=== PATIENT | male | born 1965 | race Caucasian/White ===

== ENCOUNTER 2019-05-29 12:01 | Inpatient (IN) | payer OTHER, SELFPAY ==
[2019-05-25 10:57] VITALS: BMI 29.9
[2019-05-29] VITALS (16 sets, daily range): BP systolic 106–137; BP diastolic 55–84; PULSE 77–97; RESP 10–20; TEMP 36.3–37.1; O2SAT 92–98; BMI 29.9
--- NOTE | 2019-05-29 | DI.RAD.S_ITS ---
PROCEDURE: XR CERVICAL SPINE 2V OR 3V INDICATIONS: C5-6 C6-7 ACDF TECHNIQUE: 3 intraoperative fluoroscopic view(s) of the cervical spine were acquired. COMPARISON: None. FINDINGS: Intraoperative fluoroscopic images of cervical spine shows anterior fusion hardware is seen at C5-C7 levels. IMPRESSION: Fluoroscopy guidance was provided intraoperatively for anterior fusion at C5-6 and C6-7 levels. Dictated by: Destin Nieto M.D. on 05/29/2019 at 18:00 Approved by: Destin Nieto M.D. on 05/29/2019 at 18:00
[2019-05-29] MEDS: LACTATED RINGERS 1,000 ML 42 ML IV ×2 (12:45→17:34)
[2019-05-29] MEDS: ACETAMINOPHEN 325 MG TABLET 975 MG PO (12:55)
[2019-05-29] MEDS: GABAPENTIN 300 MG CAPSULE PO (12:56)
[2019-05-29] MEDS: CELECOXIB 200 MG CAPSULE 400 MG PO (13:01)
--- NOTE | 2019-05-29 15:04 | PM.PREOP ---
Pre-operative Note Interval Note History & Physical reviewed/Exam performed by Physician: Yes Changes to H&P: No
[2019-05-29] MEDS: CEFAZOLIN 2 GM/100 ML FROZ.PIGGY IV ×2 (15:32→23:29)
--- NOTE | 2019-05-29 16:08 | SUR.OPER ---
Supine, head on gel donut. Arms padded with gel pads, tucked at sides, towel roll under shoulders. Safety belt at thigh. Legs uncrossed.
[2019-05-29] MEDS: BUPIVACAINE 0.25% W/ EPI 30 ML VIAL INJ (16:27)
--- NOTE | 2019-05-29 17:49 | P.OP_ITS ---
Operative Date/Time/Diagnoses Date of procedure: 05/29/19 Time of procedure: 15:12 Pre-op diagnosis: 1. C5-6, c6-7 spinal stenosis 2. C5-6, C6-7 spondylosis with radiculopathy Post-op diagnosis: same Procedure & Clinicians Procedure: 1. C5-6 C6-7 anterior cervical diskectomy and fusion 2. C5-6 C6-7 anterior interbody cage placement 3. C5-6 C6-7 anterior instrumentation with plate and screw placement in C5-C6 and C7 vertebrae 4. Utilization of microsurgical technique and operating microscope Same procedure as scheduled: Yes Indications: Patient has been having chronic neck pain and worsening cervical radiculopathy due to a injury while working. Patient failed multiple conservative management with worsening pain weakness and numbness in her upper extremity. Patient has been having difficulty performing activity of daily living. After discussing risks benefits of treatment options, patient elected proceed with surgery. Surgeon: Nathan Diez Synthetic Filament Extruder: Anu Andrews Click Yes if Unassisted: No Anesthesia Type: General Operative Notes Closure Type: primary Specimen(s): none sent Prosthetic devices, grafts, tissues, transplants, or devices: Globus extend plate, PEEK cages Estimated Blood Loss (mL): 20 Blood products transfused: none Procedure in detail: Patient was seen in the preoperative area. Risks and benefits of the surgery was discussed with the patient. Operative consent was obtained and placed in the chart. Patient was then taken to the operative room. Prophylactic antibiotic was given less than 0.5 hr prior to skin incision. General anesthesia was administered. Patient was placed into a supine position on her radiolucent table. Bilateral shoulders were taped down to allow proper C- arm imaging. Anterior cervical area was prepped and draped in a sterile fashion. Time-out was performed at this time. Using lateral C-arm imaging, the level between C5 and C7 was identified and marked on patient's neck. A oblique incision from midline towards medial border of sternocleidomastoid muscle was made. The platysma muscle was incised in line with skin incision. Metzenbaum scissor was used to develop the plane between the medial border of sternocleidomastoid d and the strap muscles medially. The carotid sheath and its contents were identified and protected behind the hand- held retractor during the entire case. The plane between the carotid sheath and strap muscles was developed with Metzenbaum scissors. Dissection was made down to the level of the anterior cervical fascia. Longus colli muscle was incised on the anterior aspect of vertebral bodies bilaterally from C5-C7. Spinal needle was placed into the C5-6 disc space and confirmed with lateral C-arm imaging. Using microsurgical technique and operative microscope, anterior cervical diskectomy was performed at C5-6 and C6-7 level. This was done by removing the disc material, removing the anterior and posterior osteophytes posterior longitudinal ligaments along with performing bilateral foraminotomies at both levels. Patient was found to have severe central and foraminal stenosis at both levels. Patient's stenosis was fully decompressed after decompression was completed. After the diskectomy was completed, 2 anterior interbody cages were obtained. The cages were packed with Bio4 bone grafting material. One cage each along with the bone grafting material was then packed into the interbody spaces from C5-C7 with one cage into each interbody level. After the cages were placed, the anterior cervical plate was stabilized to the C5-C7 vertebrae using 2 screws at each each level. Total 6 screws were placed. After confirming placement of the hardware with AP and lateral C-arm imaging, the screws were locked into the plate using the locking mechanism and torque limiting screwdriver. After the hardware was placed and confirmed with AP and lateral C-arm imaging, the wound was irrigated with sterile normal saline. The platysma muscle and the subcutaneous tissue was closed with 2-0 Vicryl. The skin was closed with 4-0 Monocryl and Steri-Strips. Patient tolerated the procedure well. Patient was transferred recovery room in stable condition. There were no complications. Complications: none Post-operative Condition: stable Disposition: PACU Plan for aftercare: Admit to inpatient hospital
[2019-05-29] MEDS: HYDROMORPHONE 2 MG INJ IV ×8 (17:55→18:50)
[2019-05-29] MEDS: fentaNYL 100 MCG/2 ML INJ IV ×4 (18:00→18:45)
[2019-05-29] MEDS: LACTATED RINGERS 1,000 ML 120 ML IV (18:06)
[2019-05-29] MEDS: OXYCODONE IR 5 MG TABLET PO (18:49)
--- NOTE | 2019-05-29 19:03 | SUR.PHASEI ---
pt last medicated at 1850 with oral and iv meds- see MAY. gave verbal report to MANAGER BUDGETMAVERICK Kim and acute care Sherrie Le. pt will require another 20 minutes of monitoring after IV meds. pt had 10/10 pain on arrival to PACU and is now a 5/10
[2019-05-29] MEDS: HYDROMORPHONE 0.5 MG INJ IV (20:10)
[2019-05-29] MEDS: SODIUM CHLORIDE 0.9% 1,000 ML 100 ML IV (20:11)
[2019-05-29] MEDS: OXYCODONE IR 5 MG TABLET 10 MG PO ×2 (20:19→23:28)
[2019-05-29] MEDS: hydrOXYzine pamoate 25 MG CAPSULE PO (20:19)
[2019-05-29] MEDS: ACETAMINOPHEN 325 MG TABLET 650 MG PO (20:19)
[2019-05-29] MEDS: MAG HYDROX/ALUM/SIMETH 30 ML UDC PO (21:15)
[2019-05-29] MEDS: DOCUSATE 100 MG CAPSULE PO (22:34)
[2019-05-29] MEDS: SENNOSIDES 8.6 MG TABLET 17.2 MG PO (22:34)
[2019-05-29] MEDS: PANTOPRAZOLE 20 MG TABLET PO (22:34)
--- NOTE | 2019-05-29 23:38 | PC.NURSE ---
Post-op note: Nick brought from PACU, reporting pain to neck and upper spine 10/05, medicated with Dilaudid, oxycodone & vistaril. Since then rates pain at a 4/10, appears relaxed. Ox3. VS stable. Ant neck drsg is CDI. Denies numbness to extremities. Wearing foot SCD's. Ambulated to BR to void, needing only SBA. Tolerated pudding & mac N cheese tonight, denies need for additional PO intake. Encouraged him to call in breakfast order & stick with soft foods. Reports sore throat but denies difficulty swallowing. Fall precautions in place, instructed to call staff if needs OOB or for any other needs/concerns.
--- NOTE | 2019-05-30 00:41 | PC.NURSE ---
Addendum entered by Melia Uriostegui R.N. 05/30/19 06:39: Pt reports pain upto a 7 with movement and while ambulating and requests IV dilaudid for breakthrough pain. Original Note: Pt alert and oriented x4. SBA to restroom. VSS. Pt reports tolerating pain at this time. Ice applied to help pain. Pt reports no numbness at this time. Cervical gauze dressing over incision clean dry and intact. C-collar intact. Pt has no complaints
[2019-05-30] MEDS: OXYCODONE IR 5 MG TABLET 10 MG PO ×5 (02:34→16:01)
[2019-05-30] MEDS: HYDROMORPHONE 0.5 MG INJ IV ×2 (02:58→06:43)
[2019-05-30 03:53] VITALS: BP 113/68; PULSE 64; RESP 16; TEMP 36.7; O2SAT 95
--- NOTE | 2019-05-30 07:36 | PM.PNPO.1 ---
Subjective Subjective Date Patient Seen: 05/30/19 Time Patient Seen: 07:36 Interval history: POD #1 s/p ACDF with Dr. Diez. Patient was early this morning getting dressed and moving about his room. He experienced an increase in pain but this has resolved since then. He is taking Vistaril and oxycodone with good pain management. He has some hoarseness. No difficulty swallowing. He does complain of posterior and anterior neck pain. Exam Vital Signs (past 8 hours): - 05/30/19 03:53 Temperature 98.0 F Pulse Rate 64 Respiratory Rate 16 Blood Pressure 113/68 Pulse Oximetry 95 Oxygen Delivery Method Room Air Oxygen Flow Rate 0 Narrative Exam Narrative: Patient is sitting up in bed no acute distress. He is alert and oriented x3. Calves are soft, compressible, nontender bilaterally. Radial pulses are symmetrical. No numbness going down the arms. Sensation intact to light touch throughout bilateral upper extremities. [employer] strength strong and equal. Dressing on anterior neck is CDI. Wearing soft collar. Objective Labs Result Diagrams: 05/30/19 08:00 Assessment & Plan Post-op Postoperative Procedures: Procedures Operation Date: 05/29/19 13:45 Actual Procedures Side Surgeon p C5-6,C6-7 ACDF w/Anterior instrumentation Nathan Diez MD Patient will mobilize with physical therapy today. He has been moving about his room. No excessive bending, lifting, or twisting. Soft collar for comfort. Advised patient to take Vistaril, and oxycodone for pain control. He is voiding without difficulty. The patient is mobilizing safely with adequate pain control he can go home today. Quality VTE Deep Vein Thrombosis/Pulmonary Embolism Present on Admission: No
[2019-05-30 08:00] VITALS: BP 119/81; PULSE 80; RESP 16; TEMP 36.6; O2SAT 92
[2019-05-30] MEDS: CEFAZOLIN 2 GM/100 ML FROZ.PIGGY IV (08:15)
[2019-05-30] MEDS: DOCUSATE 100 MG CAPSULE PO (08:15)
[2019-05-30 08:30] LABS: Hematocrit 43.3 % (41-53); Hemoglobin 14.8 g/dL (13.5-17.5); Mean Corpuscular HGB Conc 34.1 % (30-36); Mean Corpuscular Hemoglobin 30.2 PG (26-34); Mean Corpuscular Volume 88.6 fL (80-100); Platelet Count 227 X10^3/uL (150-400); Red Blood Cell Count 4.89 X10^6/uL (4.5-5.9); Red Cell Distribution Width 14.3 % (11.6-14.8); White Blood Cell Count 12.6 X10^3/uL (4.5-11.0)
[2019-05-30] MEDS: MAG HYDROX/ALUM/SIMETH 30 ML UDC PO (09:08)
--- NOTE | 2019-05-30 09:25 | PT.IIE ---
Current Diagnoses Other spondylosis with radiculopathy, cervical region (05/29/19) Spinal stenosis, cervical region (05/29/19) Surgery Performed Operation Date: 05/29/19 13:45 Actual Procedures p C5-6,C6-7 ACDF w/Anterior instrumentation - Nathan Diez MD Surgical History (Last Updated 05/25/19 @ 11:17 by Roxana Toth RN) Hx of eye surgery (Acute) Hx of neck surgery (Acute) Hx of right knee surgery (Acute) Medical History (Last Updated 05/25/19 @ 11:34 by Roxana Toth RN) Alcoholism (Acute) Gout (Acute) Heart burn (Acute) Osteoarthritis (Acute) Pneumonia (Acute) Situational hypertension (Acute) Physical Therapy Inpatient Evaluation/Re-Eval M1 PT/OT-IP Prior Functional Status Start: 05/30/19 09:47 Freq: NEEDED Status: Active Protocol: Document 05/30/19 09:48 [facility] (Rec: 05/30/19 10:13 [facility] [id number]) Medical Review Prior Functional Status Medical History Reviewed Yes Communication Independent. Mobility and Gait Independent with no device. Activities of Daily Living and IADL's Completely independent with all Adl and IADl needs. 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 Social History Household Members none Living Arrangements Apartment/Condo Number of Floors (Floors) One Floor Number of Stairs To Enter/Railing? 2 steps. Home Environment Standard Height Toilet,Tub/ Shower Home Equipment Hand Held Shower,Grab Bars In Shower Additional Social History Comment Pt's cousin to be home to assist, however his cousin has lost a leg due to diabetes. In addition pt has a dog. M1 PT/OT-IP Prior Functional Status Start: 05/30/19 12:14 Freq: NEEDED Status: Active Protocol: Document 05/30/19 09:25 AB (Rec: 05/30/19 12:26 AB [id number]) Medical Review Prior Functional Status Medical History Reviewed Yes Communication able to make needs known Mobility and Gait stated that he is indpeendent with all mobilities and ambulation without AD Social History Household Members none Living Arrangements Apartment/Condo Number of Floors (Floors) One Floor Number of Stairs To Enter/Railing? has 2 steps to enter without rails from the front has only 1 step to enter from the garage Home Environment Standard Height Toilet,Tub/ Shower Home Equipment Shower Seat with Backrest,Hand Held Shower,Grab Bars In Shower Additional Social History Comment pt stated that his cousin may assist but limited M2 PT-IP Current Condition Start: 05/30/19 12:14 Freq: NEEDED Status: Active Protocol: Document 05/30/19 09:25 AB (Rec: 05/30/19 12:26 AB [id number]) Physical Therapy Current Condition Current Condition Evaluation Date 05/30/19 Treatment Diagnosis s/p C5-7 ACDF; difficulty in walking Onset Date 05/29/2019 Precautions Cervical Spine Precautions Soft Collar for Comfort,No Heavy Lifting,Log Roll M3 PT-IP Subjective Start: 05/30/19 12:14 Freq: NEEDED Status: Active Protocol: Document 05/30/19 09:25 AB (Rec: 05/30/19 12:26 AB [id number]) Subjective Physical Therapy Visit Type Type Initial Evaluation Visit Start Time 09:25 Visit Stop Time 09:35 Total Visit Minutes 10 Number of ERECTING ENGINEER Visits 0 Physical Therapy Visit Comments Patient Comments pt agreeable to do PT Therapy Pain Assessment Pain When Pain Assessed At Rest Pain Present Pain Present Pain Reported Location back of neck Intensity 4 Scale Used Numeric (1 - 10) Pain Management Techniques Re-positioning,Timing of Activity with Medications M4 PT-IP Mobility and Gait Start: 05/30/19 12:14 Freq: NEEDED Status: Active Protocol: Document 05/30/19 09:25 AB (Rec: 05/30/19 12:26 AB [id number]) PT-Bed Mobility Assessment Rolling Type of Rolling Log Rolling Level of Assist Standby Assistance Supine to Sit Supine to Sit Standby Assistance Sit to Supine Sit to Supine Standby Assistance Scooting Scooting to Edge of Bed Standby Assistance PT-Transfer Assessment Sit to and From Stand Sit to and from Stand Standby Assistance Equipment Transfer Assistive Device None Orthotic/Prosthetic Devices or Brace: Yes Comments Mobility Comments pt completed log roll bed mobility SBA with initial cues for techniques but without cues on succeeding repetitions . ambulated in the hallway without AD SBA ~ 300ft. completed up/down steps without rails SBA. ambulated back to the room. informed nurse regarding pt's mobility. Gait Assessment Gait Gait Assistance Required: Standby Assistance Distance (Feet) 300 Able to Maintain Weight Bearing Status Yes During Gait Assistive Devices Assistive Device None Orthotic/Prosthetic Devices or Brace: Yes Gait Deviations General Gait Pattern Within Normal Limits Factors Limiting Gait Function Factors Limiting Gait Function Limited Range of Motion,Pain Stair Climbing Assessment Evaluation Level of Assist On Stairs Standby Assistance Devices Stair Climbing Assistive Devices None Technique/Endurance Stair Climbing Direction Ascend and Descend Stair Climbing Technique Step Over Step Number of Steps Climbed 3 Query Text: Stair Climbing Set # Repetitions (reps) 1 PT-Balance Assessment Sitting Balance and Reactions Static Sitting Balance Ability Normal Dynamic Sitting Balance Ability Normal Standing Balance and Reactions Static Standing Balance Ability Good Dynamic Standing Balance Ability Good Device Used without AD M5 PT-IP Objective Assessments Start: 05/30/19 12:14 Freq: NEEDED Status: Active Protocol: Document 05/30/19 09:25 AB (Rec: 05/30/19 12:26 AB [id number]) Orientation Orientation/Cognition Level of Alertness Alert Orientation Name,Age,Birthday,Month,Date, Year,Day of Week,Place, Situation Safety Awareness Understands Safety Issues Memory Description No Deficits Noted Gross Range of Motion Lower Extremity ROM Assessment Within Functional Limits Strength Lower Extremity Strength Assessment Within Functional Limits Coordination Assessment Gross Coordination Gross Coordination WNL Muscle Tone Muscle Tone WNL Yes M6 PT-IP Treatment Start: 05/30/19 12:14 Freq: NEEDED Status: Active Protocol: Document 05/30/19 09:25 AB (Rec: 05/30/19 12:26 AB [id number]) Physical Therapy Treatment Education Education Provided Precautions,Safety M7 PT-IP Assessment and Plan Start: 05/30/19 12:14 Freq: NEEDED Status: Active Protocol: Document 05/30/19 09:25 AB (Rec: 05/30/19 12:26 AB [id number]) PT Summary Assessment and Plan Potential Rehabilitation Potential Good Status of Condition at Evaluation Stable Summary Impairments Pain,ROM,Strength,Balance,Bed Mobility,Transfers,Gait, Activity Tolerance Assessment Summary pt requiring SBA with mobility and plans to go home later today. pt may go home when medically stable. Goals Bed Mobility Goal Independent Transfer Goal Independent Gait Goal Independent Gait Distance 350 Days to Meet Goals 3 Frequency of Treatment Frequency Of Treatment Once a Day Treatment Plan Physical Therapy Treatment Plan Bed Mobility Training,Transfer Training,Gait Training, Therapeutic Exercise,Balance Retraining,Post Op Education, Discharge Planning,Hot or Cold Pack,Neuromuscular Re-ed Recommendations To Nursing Amount of Assist Needed Standby Assistance Discharge Recommendations PT Discharge Recommendations Home with Assistance Transportation Needs at Discharge Private Vehicle
--- NOTE | 2019-05-30 10:13 | OT.IP.EVAL ---
Current Diagnoses Other spondylosis with radiculopathy, cervical region (05/29/19) Spinal stenosis, cervical region (05/29/19) Surgery Performed Operation Date: 05/29/19 13:45 Actual Procedures p C5-6,C6-7 ACDF w/Anterior instrumentation - Nathan Diez MD Past Medical History (Last Updated 05/25/19 @ 11:34 by Roxana Toth, RN) Alcoholism (Acute) Gout (Acute) Heart burn (Acute) Osteoarthritis (Acute) Pneumonia (Acute) Situational hypertension (Acute) Surgical History (Last Updated 05/25/19 @ 11:17 by Roxana Toth RN) Hx of eye surgery (Acute) Hx of neck surgery (Acute) Hx of right knee surgery (Acute) Occupational Therapy Inpatient Evaluation/Re-Eval M1 PT/OT-IP Prior Functional Status Start: 05/30/19 09:47 Freq: NEEDED Status: Active Protocol: Document 05/30/19 09:48 [facility] (Rec: 05/30/19 10:13 [facility] [id number]) Medical Review Prior Functional Status Medical History Reviewed Yes Communication Independent. Mobility and Gait Independent with no device. Activities of Daily Living and IADL's Completely independent with all Adl and IADl needs. 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 Social History Household Members none Living Arrangements Apartment/Condo Number of Floors (Floors) One Floor Number of Stairs To Enter/Railing? 2 steps. Home Environment Standard Height Toilet,Tub/ Shower Home Equipment Hand Held Shower,Grab Bars In Shower Additional Social History Comment Pt's cousin to be home to assist, however his cousin has lost a leg due to diabetes. In addition pt has a dog. M2 OT-IP Current Condition Start: 05/30/19 09:47 Freq: Status: Active Protocol: Document 05/30/19 09:48 [facility] (Rec: 05/30/19 10:13 [facility] [id number]) Occupational Therapy Current Condition Current Condition Evaluation Date 05/30/19 Treatment Diagnosis s/p C5-6, C6-7 ACDF Diagnosis Onset Date 05/29/19 Post Operative Precautions Cervical Spine Precautions Soft Collar for Comfort,Soft Collar at all Times,No Heavy Lifting,Log Roll Weight Bearing Status Weight Bearing Status Weight Bear as Tolerated M3 OT- IP Subjective and Pain Start: 05/30/19 09:47 Freq: Status: Active Protocol: Document 05/30/19 09:48 [facility] (Rec: 05/30/19 10:13 [facility] [id number]) OT- Subjective Occupational Therapy Visit Type Type Initial Evaluation Visit Start Time 08:18 Visit Stop Time 08:38 Total Visit Minutes 20 Occupational Therapy Visit Comments Patient Comments Pt agreeable to get up for OT eval. Patient/Caregiver Goals To go home. OT Pain Assessment Pain When Pain Assessed During Mobility Pain Present Pain Present Pain Reported Location back of neck Intensity 4 Scale Used Numeric (1 - 10) M4 OT- IP ADL's Start: 05/30/19 09:47 Freq: Status: Active Protocol: Document 05/30/19 09:48 [facility] (Rec: 05/30/19 10:13 [facility] [id number]) OT [id number] Comments OT Self-Feeding Comments Educated pt to eat softer food , upright at 90 degrees, beneficial to eat cold foods, and to chew thoroughly, and informational sheet given to pt. OT ADL-Grooming Comments OT Grooming Comments Educated to lean at his hips to the sink versus bend at his neck. OT ADL-Dressing General Eval Lower Body Dressing Ability Independent Comments OT Dressing Comments Pt able to comfortably cross his legs over in order to do all his LB dressing needs. OT ADL-Toileting Comments OT Toileting Comments Pt not having to use the toilet for a bowel movement, simulate to wipe and pt able to do so following cervical precautions appropriately. Educated if needing to able to push up on his knees to help to stand. Pt able to stand without any assist. OT ADL-Bathing Comments OT Bathing Comments Pt to shower at home and has a shower chair that he can use if needed. M5 OT- IP IADL's Start: 05/30/19 09:47 Freq: Status: Active Protocol: Document 05/30/19 09:48 [facility] (Rec: 05/30/19 10:13 [facility] [id number]) OT-Instrumental Activities of Daily Living Home Safety Awareness Awareness of Need for Assistance at Home Good Awareness Ability to Problem Solve Emergency Able to Problem Solve Situations Medication Management Medication Management No Deficits Identified Money Management Money Management No Deficits Identified Meal Preparation Meal Preparation Caregiver Provides Assist Dancing Teacher Dancing Teacher Caregiver Provides Assist M6 OT- IP Functional Cognition Start: 05/30/19 09:47 Freq: Status: Active Protocol: Document 05/30/19 09:48 [facility] (Rec: 05/30/19 10:13 [facility] [id number]) Cognitive Factors Limiting Selfcare Function Cognitive Ability Level of Alertness Alert Patient Orientation Name,Age,Birthday,Month,Date, Year,Day of Week,Place, Situation Attention Span Ability Capable of Focused Attention, Capable of Sustained Attention Ability to Follow Commands Able to Follow Multi-Step Commands Memory Description No Deficits Noted Safety Awareness No Deficits Noted Problem Solving Ability No deficits Noted Cognitive Comments Cognitive Assessment Comments No deficits noted on OT eval, appears at baseline. OT- Vision and Hearing OT- Hearing Assessment OT- Hearing Assessment WFL OT- Vision Assessment Visual Acuity Glasses For Reading M7 OT- IP Mobility and Balance Start: 05/30/19 09:47 Freq: Status: Active Protocol: Document 05/30/19 09:48 [facility] (Rec: 05/30/19 10:13 [facility] [id number]) OT- Bed Mobility Assessment Rolling Type of Rolling Roll to Right Level of Assistance Independent Supine to Sit Supine to Sit Assist Independent Sit to Supine Sit to Supine Assist Independent OT-Transfer Assessment Sit to and From Stand Sit to and from Stand Independent Transfers Transfer Ability Independent Technique Transfer Destination Bed,Chair,Toilet Transfer Technique Stand Step Pivot Devices Transfer Assistive Devices None Comments Mobility Comments Pt independent with mobility needs in the room after initial education of cervical precautions and log rolling. OT- Balance Assessment Sitting Balance and Reactions Static Sitting Balance Ability Normal Dynamic Sitting Balance Ability Normal Standing Balance and Reactions Static Standing Balance Ability Normal Dynamic Standing Balance Ability Good M8 OT- IP Objective Assessments Start: 05/30/19 09:47 Freq: Status: Active Protocol: Document 05/30/19 09:48 [facility] (Rec: 05/30/19 10:13 [facility] [id number]) OT Strength Upper Extremity Strength Assessment Within Functional Limits OT- Coordination Assessment Upper Extremity Finger to Nose Test Within Functional Limits OT-Muscle Tone Assessment Muscle Tone WNL Yes M9 OT- IP Assessment and Plan Start: 05/30/19 09:47 Freq: Status: Active Protocol: Document 05/30/19 09:48 [facility] (Rec: 05/30/19 10:13 [facility] [id number]) OT Summary Assessment and Plan Potential Rehabilitation Potential Excellent Analytic Complexity at Evaluation Low Summary OT Impairments Pain Progress Towards Goals Progressing Toward Goals Assessment Summary Pt low complexity and main barrier having pain, but so far independently able to do all ADl needs, camryn/doff soft collar and to have cousin assist at home. Pt has good understanding for all cervical precautions and to be going home today. Goals Patient/Caregiver Education Goal Demonstrate Post-Op Precautions,Caregiver Independent Assisting Patient Days to Meet Goals 1 Frequency of Treatment Frequency Of Treatment Once a Day Treatment Plan OT Treatment Plan Patient/Family Education, Discharge Planning Other Treatment Recommendations and Next Shower if still here. Treatment Focus Discharge Recommendations OT Discharge Recommendations Home with Assistance Transportation Needs at Discharge Private Vehicle
--- NOTE | 2019-05-30 10:41 | PC.NURSE ---
Patient ambulating independently in the room, denies SOB, chest pain, dizziness, numbness or tingling in the extremities. Soft collar is intact, neck dsg is CDI. Patient is up to restroom to void independently. IV is saline locked. C/O heartburn earlier, PRN medication administered. Denies further needs at this time.
--- NOTE | 2019-05-30 12:45 | CM.DANOTE ---
Addendum entered by Toshia Chirinos LPN 05/30/19 12:50: Met with pt as planned. Introduced self and role. Pt is found lying in bed, fully dressed, soft collar in place. He confirms his plan for home: his daughter will pick him up today after work and will be here about 1800. He confirms he did well with therapy today but says I might have overdone it. I am pretty sore at the moment but they just gave me a pain pill. I do plan to go home when my daughter gets here. P: home today as per above. Original Note: Discharge Planning/Care Management DCP: assessment: case received, EMR reviewed. Discussed in Team Rounds. A d/c to home setting order was noted. OT Honey confirmed that pt is working with PT and OT and is cleared for home from therapy standpoint. He is up independently in room with nursing staff. Will check in with pt and follow prn for any d/c needs that may have arisen. CM Discharge Assessment Start: 05/30/19 12:44 Freq: Status: Active Protocol: Document 05/30/19 12:44 ITV (Rec: 05/30/19 12:45 ITV [id number]) Discharge Planning Assessment Advance Directives? No History Provided By Medical Record Prior Living Arrangements Apartment/Condo Household Members none Independent with ADL's Yes Is patient alert and oriented? Yes Discharge Plan Home Whiteboard Updated in Patient Room with Yes name and ext. # of Living Specialist Pre-Anesthesia Assessment Start: 05/25/19 10:57 Freq: Status: Active Protocol: Document 05/25/19 10:57 CAB (Rec: 05/25/19 11:33 CAB [id number]) Pre-Anesthesia Assessment PAC Comment Surgeon H&P not available at time of assess Patient Information Reviewed Via Phone Assessment Assessment Completed With Patient Diagnostic Results EKG Comment EKG done @[facility] per pt 05/24/19, not available, pt states not told to do labs Primary Care Provider Juan Antonio Lai Seen Specialist in Last 12 Months Yes Specialist Seen Orthopedist Primary Language Malawian Physician Office Rep Required No Height 182.88 cm Weight 100.244 kg Body Mass Index (BMI) 29.9 Hearing Ability Normal Visual Assist None Dentition Type Teeth, Natural Present Barriers to Learning None Other Aids No Hx Anesthesia Reactions No Hx Family Anesthesia Reaction No Hx Malignant Hyperthermia No Hx Blood Transfusions No Anesthesia Review Requested No alcohol intake former Alcohol Intake Frequency Other: Hx alcoholism, sober 10/2018 Tobacco type smokeless tobacco how long ago did patient quit smoking Quit chewing 6 weeks ago Substance Use Type does not use Pain Present Pain Reported Musculoskeletal Symptoms Limited Range of Motion,Neck Pain,Numbness,Radiating Pain into Limb History of Falling (Recent or History of No ) Patient is completely paralyzed or No completely immobile Mental Status Oriented to own ability Is patient on oxygen? 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 No Cardiac Clearance Received Not Applicable Diet Type At Home Regular dysphagia No Urinary Catheter Present No Hx Urinary Self Catheterization No Diabetes No Hx Drug Resistant Organism No Presence of External or Internal Medical No Devices Winters exposure No Have you had any close contact with No someone diagnosed with NOVEL CORONAVIRUS ? Have you traveled outside the [facility] in the last 30 days? Marital Status Lives With none Prior Living Arrangements Apartment/Condo Number of Floors (Floors) One Floor Support System Child/Children,Family,Parent(s ) Does the Patient Have Assistance After Yes Surgery Patient Discharge Plan Description Return Home Comment Pt not advised on length of stay per surgeon Feels Safe in Current Environment Yes Been Physically Hurt or Threatened By a No Person in Current Environment Do you have thoughts of harming yourself None or others? Are you currently considering suicide? No Do you have a plan to hurt yourself or No Plan others? Do You Have Any Spiritual Beliefs That No May Affect Your HC Choices? Do You Have Any Cultural Practices That No May Affect Your HC Choices? Comment Confucianist Who Can We Speak to About Patient's Care Family, friends Identifying Code for Release of Patient Declines to issue Information Health Care Proxy/Next of Kin Amena (daughter) Health Care Proxy Emergency Contact Name Amena (daughter) Emergency Contact Advance Directives? No Power of Cooper Helper No PAC Instructions Durable medical equipment, Medications to take/avoid, Nasal antibiotic,No ETOH/ petroleum product on skin DOS, NPO,Post-op transportation,Pre -op antibiotic,Sturdy shoes/ comfortable clothes,Do not bring valuables and remove jewelry
[2019-05-30] MEDS: hydrOXYzine pamoate 25 MG CAPSULE PO (12:47)
[2019-05-30 13:30] VITALS: BP 125/70; PULSE 78; RESP 16; TEMP 36.7; O2SAT 94
--- NOTE | 2019-05-30 14:46 | ST.IPSCREEN ---
Performed swallow screen on patient per protocol. Patient states he has had increased pain when swallowing this afternoon compared to yesterday, but is still able to get food and liquids down. Patient's symptoms are consistent with post-surgical dysphagia and expected to improve with time. Provided verbal education regarding safe swallow precautions, eating a softer diet and following up with physician if symptoms continue to worsen or persist.
--- NOTE | 2019-05-30 16:10 | PC.NURSE ---
Addendum entered by Breanna Price R.N. 05/30/19 18:05: HL D/C'd intact D/C instructions and RX given w/ apparent understanding. Pt dsg anterior neck CDI. Pt escorted by staff to waiting vehicle in stable post op status. Original Note: Pt resting at this time. Up independently in room. Soft collar in place. Med w/Oxycodone at 1600 for 6/10 discomfort. HL intact. Pt awaiting to discharge home this evening.
== END 2019-05-30 18:00 | disposition home or self-care (01) | DRG 321 ==
PROVIDERS: Physician Assistant Surgical; Admitting Provider Orthopaedic Surgery Orthopaedic Surgery of the Spine; Family Provider Orthopaedic Surgery Orthopaedic Surgery of the Spine; PCP Family Medicine; Referring Provider Orthopaedic Surgery Orthopaedic Surgery of the Spine; Visit Provider Orthopaedic Surgery Orthopaedic Surgery of the Spine
PROC: 0RG20A0 Fusion of 2 or more Cervical Vertebral Joints with Interbody Fusion Device, Anterior Approach, Anterior Column, Open Approach (ICD-10-PCS; principal; 2019-05-29 13:45)
DX: M47.22 Other spondylosis with radiculopathy, cervical region (principal); M48.02 Spinal stenosis, cervical region; I10 Essential (primary) hypertension; G89.29 Other chronic pain; K21.9 Gastro-esophageal reflux disease without esophagitis; Y99.0 Civilian activity done for income or pay
CPT/HCPCS: 36415; 72040; 76000; 85027; 97161; 97165; C1776; J0330; J0690; J1100; J1170; J2250; J2405; J2704; J3010

== ENCOUNTER 2023-02-12 12:01 | Day surgery (SDC) | payer OTHER, SELFPAY ==
[2019-05-29 20:23] VITALS: BMI 29.9
[2023-02-04 08:42] VITALS: BMI 28.5
[2023-02-12] VITALS (12 sets, daily range): BP systolic 118–156; BP diastolic 72–101; PULSE 62–76; RESP 11–21; TEMP 36.2–36.8; O2SAT 94–97; BMI 28.5
--- NOTE | 2023-02-12 06:00 | DI.RAD.S_ITS ---
PROCEDURE: XR KNEE RT 1TO2V INDICATIONS: TKA TECHNIQUE: 2 view(s) of the knee acquired. COMPARISON: [facility], MR, MR KNEE RIGHT WITHOUT CONTRAST, 12/07/2022, 18:25. [facility], CR, XR KNEE 4+ VIEWS BILATERAL, 04/30/2020, 11:06. FINDINGS: Bones: Patient is status post knee joint arthroplasty. Hardware components are in expected positions. Visualized bony structures are intact. Soft tissues: Overlying postoperative changes are noted. IMPRESSION: Expected post-operative appearance of a knee arthroplasty. Dictated by: Edilia Dutta M.D. on 02/12/2023 at 19:02 Approved by: Edilia Dutta M.D. on 02/12/2023 at 19:02
[2023-02-12] MEDS: ACETAMINOPHEN 325 MG TABLET 975 MG PO (12:42)
[2023-02-12] MEDS: MELOXICAM 7.5 MG TABLET PO (12:42)
[2023-02-12] MEDS: LACTATED RINGERS 1,000 ML 42 ML IV ×2 (12:43→18:37)
--- NOTE | 2023-02-12 15:05 | PM.PREOP ---
Pre-operative Note Interval Note History & Physical reviewed/Exam performed by Physician: Yes Changes to H&P: No
[2023-02-12] MEDS: CEFAZOLIN 2 GM/100 ML PREMIX 100 ML IV ×2 (15:49→22:41)
[2023-02-12] MEDS: TRANEXAMIC ACID 1,000 MG VIAL 1000 MG INJ ×2 (15:55→17:48)
--- NOTE | 2023-02-12 16:12 | SUR.OPER ---
Supine on padded OR bed. Pillow under head, arms secured on padded armboards <90 degree abduction. Safety belt across torso. Non-operative leg secured with tape over blanket over lower leg. Operative leg secured in DeMayo/Garrett/Nathe positioner. Foam padded brace at thigh of operative leg.
[2023-02-12] MEDS: ROPIVACAINE/EPI/CLONIDINE/KET 50 ML SYRINGE INJ (16:53)
[2023-02-12] MEDS: hydrOXYzine pamoate 25 MG CAPSULE PO (18:33)
[2023-02-12] MEDS: HYDROMORPHONE 1 MG INJ IV ×2 (18:34→18:43)
[2023-02-12] MEDS: ONDANSETRON 4 MG/2 ML INJ IV (18:34)
[2023-02-12] MEDS: OXYCODONE IR 5 MG TABLET PO ×3 (18:34→21:09)
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
[2023-02-12] MEDS: IBUPROFEN 600 MG TABLET PO (20:21)
[2023-02-12] MEDS: DOCUSATE 100 MG CAPSULE PO (20:21)
[2023-02-12] MEDS: ASPIRIN EC 81 MG TABLET PO (20:21)
[2023-02-12] MEDS: ACETAMINOPHEN 325 MG TABLET 650 MG PO (20:22)
[2023-02-12] MEDS: LACTATED RINGERS 1,000 ML 100 ML IV ×2 (20:22→21:49)
[2023-02-12] MEDS: INFLUENZA VACCINE QIV 0.5 ML SYRINGE IM (21:10)
[2023-02-12] MEDS: HYDROMORPHONE 0.5 MG INJ IV (21:51)
[2023-02-12] MEDS: MELATONIN 3 MG TABLET 10 MG PO (22:38)
[2023-02-13] MEDS: OXYCODONE IR 5 MG TABLET PO ×4 (01:02→20:06)
[2023-02-13] MEDS: ACETAMINOPHEN 325 MG TABLET 650 MG PO ×4 (02:44→20:05)
[2023-02-13] MEDS: IBUPROFEN 600 MG TABLET PO ×4 (02:45→20:05)
[2023-02-13] MEDS: HYDROMORPHONE 0.5 MG INJ IV ×5 (02:46→23:32)
[2023-02-13 05:18] LABS: Hemoglobin 12.4 g/dL (13.5-17.5)
--- NOTE | 2023-02-13 05:25 | PC.NURSE ---
Pt up to the side of the bed with walker and gait belt applied. Pt took 3 step forward and then back to bed. Pt tolerated well.
[2023-02-13] MEDS: CEFAZOLIN 2 GM/100 ML PREMIX 100 ML IV (06:03)
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
[2023-02-13 08:09] VITALS: BP 128/79; PULSE 66; RESP 16; TEMP 36.4; O2SAT 99
[2023-02-13 08:10] VITALS: BP 128/79; PULSE 67
[2023-02-13] MEDS: ASPIRIN EC 81 MG TABLET PO ×2 (08:10→20:06)
[2023-02-13] MEDS: DOCUSATE 100 MG CAPSULE PO ×2 (08:10→20:06)
[2023-02-13] MEDS: LOSARTAN 50 MG TABLET PO (08:10)
[2023-02-13] MEDS: atenoloL 50 MG TABLET 100 MG PO (08:11)
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
--- NOTE | 2023-02-13 09:42 | SUR.HOLD ---
Block start time [0945] . Monitoring initiated and maintained throughout procedure. Oxygen and medications given per anesthesiologist instructions. Patient remained stable throughout procedure, no adverse reactions noted. Block end time [1000 ]. Patient to pre-op holding area from 212 for nerve block placement to right knee s/p total knee replacment from 02/12/2023; patient has had little if any relief from pain over the last [address] Hess at bedside to perform nerve block; Meenu Gillis, MAVERICK, assisting. VSS. Patient placed on oxygen and cafeteria monitor for procedure. All risks and benefits explained to patient by Dr Jaime Hess, Anesthesia.
--- NOTE | 2023-02-13 10:31 | CM.DANOTE ---
Attempted to meet with patient for DC planning this am at 0900 but he states he is in too much pain. Dr. Hartman at bedside who offers that he is coordinating post op block for patient. CM team will attempt to discuss DC plan with patient when he is comfortable and/or after PT eval this afternoon. Discharge Planning/Care Management Pre-Anesthesia Assessment Start: 02/04/23 08:42 Freq: Status: Active Protocol: Document 02/04/23 08:42 CAB (Rec: 02/04/23 09:14 CAB [id number]) Pre-Anesthesia Assessment Patient Information Reviewed Via Phone Assessment Assessment Completed With Patient Diagnostic Results BMP/CMP,CBC,EKG Comment Outside labs/EKG scanned Primary Care Provider Ronni Liang Seen Specialist in Last 12 Months Yes Specialist Seen Orthopedist,Other Comment Rheumatology Primary Language Solomon Islander Preferred Language Solomon Islander Mural Painter Required No Height 182.88 cm Weight 95.254 kg Body Mass Index (BMI) 28.5 Hearing Ability Normal Visual Assist Magnifying Glass Dentition Type Teeth, Natural Present Barriers to Learning None Other Aids No Hx Anesthesia Reactions No: Wakes up gasping on occasion Hx Family Anesthesia Reaction No Hx Malignant Hyperthermia No Hx Blood Transfusions No Anesthesia Review Requested No Claims 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 No Does patient have DEE/SOB No Hx Sleep Apnea No: Pt wakes up gasping on occasion Currently Taking a Beta Zoya Yes: Atenolol Can You Climb a Flight of Stairs Without Yes SOB Hx Chest Pain No Hx SOB No Hx Syncope or Dizziness No Anti-Coagulant Therapy No Has a Yarn Washer No Cardiac Testing No Hx Pacemaker/ICD No Pacemaker Rep Required? No Cardiac Clearance Received Not Applicable Diet Type At Home Regular Dysphagia No Urinary Catheter Present No Hx Urinary Self Catheterization No Diabetes No HgbA1C 5.3 Date 10/30/22 Hx Drug Resistant Organism No Presence of External or Internal Medical No Devices Received a COVID vaccine? Yes Received all doses? No Marital Status Lives With none Current Living Arrangements Apartment/Condo Number of Floors (Floors) One Floor Support System Child/Children,Family,Parent(s ) Does the Patient Have Assistance After Yes Surgery Patient Discharge Plan Description Return Home Comment Pt advised overnight length of stay per surgeon Feels Safe in Current Environment Yes Been Physically Hurt or Threatened By a No Person in Current Environment Do you have thoughts of harming yourself None or others? Are you currently considering suicide? No Do you have a plan to hurt yourself or No Plan others? Do You Have Any Spiritual Beliefs That No May Affect Your HC Choices? Do You Have Any Cultural Practices That No May Affect Your HC Choices? Comment Confucianism Who Can We Speak to About Patient's Care Family, friends Identifying Code for Release of Patient Declines to issue Information Health Care Proxy/Next of Kin Amena Whaley (daughter) Health Care Proxy Emergency Contact Name Amena Whaley (daughter) Emergency Contact Advance Directives? No Power of Convex Grinder No PAC Instructions Durable medical equipment, Medications to take/avoid, Nasal antibiotic,No ETOH/ petroleum product on skin DOS, NPO,Pre-surgical wash,Sensory aids,Sturdy shoes/comfortable clothes,Do not bring valuables and remove jewelry
--- NOTE | 2023-02-13 11:46 | PT-IP ANOTE ---
PT eval order received. EMR reviewed. Checked on pt and was being transferred for nerve block procedure per ortho MD order for pain management. will f/u.
--- NOTE | 2023-02-13 12:50 | PT.IIE ---
Current Diagnoses Unilateral primary osteoarthritis, right knee (02/12/23) Surgery Performed Operation Date: 02/12/23 13:45 Actual Procedures p Total Knee Arthroplasty(Right) - Hong Hartman MD Surgical History (Last Updated 02/04/23 @ 09:07 by Roxana Toth, RN) History of fusion of cervical spine (05/29/19) Hx of eye surgery Hx of neck surgery Hx of right knee surgery Medical History (Last Updated 05/25/19 @ 11:34 by Roxana Ttoh RN) Alcoholism Gout Heart burn Osteoarthritis Pneumonia Situational hypertension Physical Therapy Inpatient Evaluation/Re-Eval M1 PT/OT-IP Prior Functional Status Start: 02/13/23 15:12 Freq: NEEDED Status: Active Protocol: Document 02/13/23 12:50 AB (Rec: 02/13/23 15:29 AB [id number]) Medical Review Prior Functional Status Medical History Reviewed Yes Communication able to make needs known Mobility and Gait pt stated that he was independent with all mobilities and ambulation without AD Social History Household Members none Living Arrangements Apartment/Condo Number of Floors (Floors) One Floor Number of Stairs To Enter/Railing? 1 step to enter from the garage Home Environment Standard Height Toilet,Tub/ Shower Home Equipment Front Wheel Walker,Crutches, Shower Seat without Backrest, Hand Held Shower,Grab Bars In Shower Additional Social History Comment pt stated that his sister might stay with him to assist or he can go to her sister's house. pt's sister's house also is a one level house with 1 step to enter; has a walk in shower. pt has a hurrycane M2 PT-IP Current Condition Start: 02/13/23 15:12 Freq: NEEDED Status: Active Protocol: Document 02/13/23 12:50 AB (Rec: 02/13/23 15:29 AB [id number]) Physical Therapy Current Condition Current Condition Evaluation Date 02/13/23 Treatment Diagnosis s/p R TKA; difficulty in walking Onset Date 02/12/23 M3 PT-IP Subjective Start: 02/13/23 15:12 Freq: NEEDED Status: Active Protocol: Document 02/13/23 12:50 AB (Rec: 02/13/23 15:29 AB [id number]) Subjective Physical Therapy Visit Type Type Initial Evaluation Visit Start Time 12:50 Visit Stop Time 13:45 Total Visit Minutes 55 Number of FOREST PATHOLOGIST Visits 0 Physical Therapy Visit Comments Patient Comments agreeable to do PT Therapy Pain Assessment Pain When Pain Assessed At Rest Pain Present Pain Present Pain Reported Location R KNEE Intensity 6 Scale Used Numeric (0 - 10) Pain Management Techniques Apply Cold,Distraction, Modification of Treatment,Re- positioning,Timing of Activity with Medications M4 PT-IP Mobility and Gait Start: 02/13/23 15:12 Freq: NEEDED Status: Active Protocol: Document 02/13/23 12:50 AB (Rec: 02/13/23 15:29 AB [id number]) PT-Bed Mobility Assessment Supine to Sit Supine to Sit Standby Assistance Sit to Supine Sit to Supine Standby Assistance PT-Transfer Assessment Sit to and From Stand Sit to and from Stand Standby Assistance Equipment Transfer Assistive Device Gait Belt,Front Wheeled Walker Orthotic/Prosthetic Devices or Brace: No Transfers Transfer Destination Bed,Chair Transfer Technique ambulated Transfer Ability Level of Assist Standby Assistance,Contact Guard Assistance,1 Person Assistance,Use of Upper Extremities Comments Mobility Comments pt on hold this morning and had a nerve block procedure this morning. pt sitting on the chair. stated that the nerve block did not work as he had expected adn pain is a 6/ 10 but was also given IV dilaudid by the nurse. pt educated on mobility, ROM on R knee and pt agreed to do PT. provided pt with post-op folder and reviewed contents. educated on HEP and importance of ROM on R knee. pt understood and agreed. completed heel slides in sitting. pt completed sit to stand from the chair SBA and ambulated in room using FWW SBA to CGA. presents with ~ 15 deg flexion on R knee in standing and stooped posture. Also has slight R knee buckling and cued for quads activation and able to stabilize with cues. pt sat on EOB and completes sit<> supine SBA. educated pt on posture and alignment and proper use of FWW. pt completed sit to stand from the EOB SBA and ambulated to the chair using FWW SBA to occasional CGA and cues. pt sat on the chair and positioned. ice pack provided . call light and table placed within reach. pt stated that ice bag is getting to be too cold. provided pt with pillow case and towel and to be aware of skin condition and ask assistance if needed. Gait Assessment Gait Gait Assistance Required: Standby Assistance,Contact Guard Assist Distance (Feet) 20 Able to Maintain Weight Bearing Status Yes During Gait Assistive Devices Assistive Device Gait Belt,Front Wheeled Walker Orthotic/Prosthetic Devices or Brace: No Gait Deviations General Gait Pattern Antalgic,Decreased Stride Length,Decreased Feet Clearance,Step-to Gait Factors Limiting Gait Function Factors Limiting Gait Function Decreased Activity Tolerance, Decreased Strength,Limited Range of Motion,Pain,Poor Balance,Poor Safety Awareness PT-Balance Assessment Sitting Balance and Reactions Static Sitting Balance Ability Normal Dynamic Sitting Balance Ability Normal Standing Balance and Reactions Static Standing Balance Ability Fair Dynamic Standing Balance Ability Fair Device Used FWW M5 PT-IP Objective Assessments Start: 02/13/23 15:12 Freq: NEEDED Status: Active Protocol: Document 02/13/23 12:50 AB (Rec: 02/13/23 15:29 AB [id number]) Orientation Orientation/Cognition Level of Alertness Alert Orientation Name,Place,Situation Language Function Ability No Deficits Noted Safety Awareness Decreased Safety Awareness Memory Description No Deficits Noted Gross Range of Motion Lower Extremity ROM Assessment Right Impaired Impairments R knee flexion: ~ 70 deg R knee extension: ~ 20 deg less to 0 Strength Lower Extremity Strength Assessment Right Impaired Hip 3+/5 Knee 3-/5 Muscle Tone Muscle Tone WNL Yes M6 PT-IP Treatment Start: 02/13/23 15:12 Freq: NEEDED Status: Active Protocol: Document 02/13/23 12:50 AB (Rec: 02/13/23 15:29 AB [id number]) Physical Therapy Treatment Education Education Provided Safety M7 PT-IP Assessment and Plan Start: 02/13/23 15:12 Freq: NEEDED Status: Active Protocol: Document 02/13/23 12:50 AB (Rec: 02/13/23 15:29 AB [email or web address]) PT Summary Assessment and Plan Potential Rehabilitation Potential Fair Status of Condition at Evaluation Evolving Summary Impairments Pain,ROM,Strength,Balance, Coordination,Sensation,Tone, Cognition,Bed Mobility, Transfers,Gait,Activity Tolerance Assessment Summary pt is a 57 y/o M s/p R TKA and is WBAT. pt with c/o increase pain after surgery and went to have a nerve block this morning. pt agreed to do PT this afternoon and completed mobility using FWW SBA to CGA. pt c/o feeling tired and increase pain with mobility and unable to ambulate farther. will continue to assess progress. will conduct caregiver training when appropriate. Goals Bed Mobility Goal Independent Transfer Goal Independent,Front Wheeled Walker Gait Goal Independent,Front Wheel Walker Gait Distance 250 Other Goals up/down 1 step using FWW mod I Days to Meet Goals 5 Frequency of Treatment Frequency Of Treatment Twice a Day Treatment Plan Physical Therapy Treatment Plan Bed Mobility Training,Transfer Training,Gait Training, Therapeutic Exercise,Balance Retraining,Post Op Education, Discharge Planning,Hot or Cold Pack,Neuromuscular Re-ed, Coordination Retraining,Manual Therapy Weight Bearing Status Weight Bearing Status Weight Bear as Tolerated Allowed Weight Bearing Amount (enter % RLE WBAT or #) (%) Recommendations To Nursing Amount of Assist Needed 1 Person Assist Discharge Recommendations PT Discharge Recommendations Home with Assistance, Outpatient PT Transportation Needs at Discharge Private Vehicle
--- NOTE | 2023-02-13 13:17 | CM.DANOTE ---
Met with patient/family to discuss discharge planning. They agree to assessment. Initial assessment navigated with patient chart and current available information. Pt is a 57 year old admitted for right total knee with Dr. Hartman. PCP: Juan Antonio Lai Payer: [employer] DME: FWW, cane Fur Trimmer: Friend Valentin Therapies: [facility] PT working with now. Has OP PT set up in [facility] Reviewed chart, pt discussed in multidisciplinary rounds this morning. Current plan is for home when cleared by PT. Barriers: Pain control. Required additional block, states did not work. Discharge Planning/Care Management CM Discharge Assessment Start: 02/13/23 10:31 Freq: Status: Active Protocol: Document 02/13/23 13:16 BQ (Rec: 02/13/23 13:17 BQ [id number]) Discharge Planning Assessment Assigned Actuarial Internship Marija Pacheco DPOA/Assigned Designee Name None Advance Directives? No History Provided By Patient,Medical Record Has Patient been admitted in last 30 No days? Prior Living Arrangements Apartment/Condo Household Members none Type of transporation used prior to Drives own vehicle admit Independent with ADL's Yes Is patient alert and oriented? Yes Caregiver for Another No DME Already Rented / Owned FWW / Walker,Cane Patient/Family Preference OP PT Therapy Barriers to Discharge Yes Comment Pain, ability to work with PT Discharge Plan Home Referrals Initiated None needed Whiteboard Updated in Patient Room with Yes name and ext. # of Actuarial Internship Review Status In Process Next Review Type Continued Stay Review Pre-Anesthesia Assessment Start: 02/04/23 08:42 Freq: Status: Active Protocol: Document 02/04/23 08:42 CAB (Rec: 02/04/23 09:14 CAB [id number]) Pre-Anesthesia Assessment Patient Information Reviewed Via Phone Assessment Assessment Completed With Patient Diagnostic Results BMP/CMP,CBC,EKG Comment Outside labs/EKG scanned Primary Care Provider Ronni Liang Seen Specialist in Last 12 Months Yes Specialist Seen Orthopedist,Other Comment Rheumatology Primary Language Nepali Preferred Language Nepali Senior Program Analyst Required No Height 182.88 cm Weight 95.254 kg Body Mass Index (BMI) 28.5 Hearing Ability Normal Visual Assist Magnifying Glass Dentition Type Teeth, Natural Present Barriers to Learning None Other Aids No Hx Anesthesia Reactions No: Wakes up gasping on occasion Hx Family Anesthesia Reaction No Hx Malignant Hyperthermia No Hx Blood Transfusions No Anesthesia Review Requested No Ferry Operator No alcohol intake former Alcohol Intake Frequency Other: Hx alcoholism, sober 10/2018 Smoking Status Never smoker Tobacco type smokeless tobacco how long ago did patient quit smoking Quit chewing 6 weeks ago Substance Use Type does not use Pain Present Pain Reported Musculoskeletal Symptoms Abnormal Gait,Arthralgias,Back Pain,Difficulty Walking,Joint Pain,Neck Pain History of Falling (Recent or History of No ) Patient is completely paralyzed or No completely immobile Mental Status Oriented to own ability Is patient on oxygen? No Does patient have DEE/SOB No Hx Sleep Apnea No: Pt wakes up gasping on occasion Currently Taking a Beta Zoya Yes: Atenolol Can You Climb a Flight of Stairs Without Yes SOB Hx Chest Pain No Hx SOB No Hx Syncope or Dizziness No Anti-Coagulant Therapy No Has a Experimental Mechanic No Cardiac Testing No Hx Pacemaker/ICD No Pacemaker Rep Required? No Cardiac Clearance Received Not Applicable Diet Type At Home Regular Dysphagia No Urinary Catheter Present No Hx Urinary Self Catheterization No Diabetes No HgbA1C 5.3 Date 10/30/22 Hx Drug Resistant Organism No Presence of External or Internal Medical No Devices Received a COVID vaccine? Yes Received all doses? No Marital Status Lives With none Current Living Arrangements Apartment/Condo Number of Floors (Floors) One Floor Support System Child/Children,Family,Parent(s ) Does the Patient Have Assistance After Yes Surgery Patient Discharge Plan Description Return Home Comment Pt advised overnight length of stay per surgeon Feels Safe in Current Environment Yes Been Physically Hurt or Threatened By a No Person in Current Environment Do you have thoughts of harming yourself None or others? Are you currently considering suicide? No Do you have a plan to hurt yourself or No Plan others? Do You Have Any Spiritual Beliefs That No May Affect Your HC Choices? Do You Have Any Cultural Practices That No May Affect Your HC Choices? Comment Bahai Who Can We Speak to About Patient's Care Family, friends Identifying Code for Release of Patient Declines to issue Information Health Care Proxy/Next of Kin Amena Whaley (daughter) Health Care Proxy Emergency Contact Name Amena Whaley (daughter) Emergency Contact Advance Directives? No Power of Transportation Agent No PAC Instructions Durable medical equipment, Medications to take/avoid, Nasal antibiotic,No ETOH/ petroleum product on skin DOS, NPO,Pre-surgical wash,Sensory aids,Sturdy shoes/comfortable clothes,Do not bring valuables and remove jewelry
[2023-02-13 19:27] VITALS: BP 115/76; PULSE 68; RESP 16; TEMP 36.8; O2SAT 96
[2023-02-13] MEDS: MELATONIN 3 MG TABLET 10 MG PO (20:06)
[2023-02-14] MEDS: IBUPROFEN 600 MG TABLET PO ×2 (03:18→09:02)
[2023-02-14] MEDS: ACETAMINOPHEN 325 MG TABLET 650 MG PO ×2 (03:18→09:01)
[2023-02-14] MEDS: OXYCODONE IR 5 MG TABLET PO ×2 (03:19→09:03)
--- NOTE | 2023-02-14 03:23 | PC.NURSE ---
Pt states he slept for about 15 mins in the recliner, but 8/10 pain in the R knee. Oxy helps for a little while, then wears off. Oxy 5 given with scheduled tylenol and advil. Encouraged patient to walk around unit, but patient wants to get back in bed. Will reassess pain, call light in reach.
[2023-02-14] MEDS: OXYCODONE IR 10 MG TABLET 5 MG PO (04:01)
[2023-02-14] MEDS: HYDROMORPHONE 0.5 MG INJ IV ×3 (06:25→14:21)
--- NOTE | 2023-02-14 08:02 | PM.PNPO.1 ---
Subjective Subjective Interval history: S: Continuing to note severe pain. Does not appear distressed but reports throbbing around the knee joint which is intermittent and severe and not improved with any medications. Postoperative adductor canal block yesterday did not improve. Did PT and reports movement does improve symptoms slightly O: SILT L2-S1. Tolerates knee ROM. Flexes/extends toes. Toes WWP. Postop imaging reviewed again today. No imaging findings which show any sort of complication that would explain persistent pain. No fractures. Good cement interdigitation. Appropriate alignment A: 57 M with persistent severe pain POD2 following R TKA P: -Will attempt a bupivacaine joint block today to provide some pain relief. Continue with previous plan otherwise -Cannot DC until we are able to control pain without IV opioids. Use oral opioids before IV -ASA 81 BID -PT -F/U in 2 weeks outpatient Inpatient joints protocol: ? Above all else the entire care team needs to communicate a clear and consistent message to the patient that this surgery was performed in order to regain motion in their effected leg. Movement represents the best avenue towards early postoperative recovery.??The patient should be encouraged to move their operative limb, spend time in a chair instead of the bed, and ambulate as much as possible ? If due to logistic reasons a physical therapist is unable to ambulate with the patient following surgery, a TIRE FINISHER or nursing staff should help the patient ambulate in the halls?on the night of surgery ? The IV should be locked unless it is being used to administer postoperative antibiotics to allow the patient to ambulate without their IV tower. If the patient is ready to ambulate during a time when IV fluids or IV antibiotics are being administered, they can be paused to allow ambulation as ambulation is the most important aspect of their postoperative recovery?? ? All patients undergoing a primary joint replacement will discharge home.??There is very strong evidence indicating that discharge to a group home facility is an independent risk factor for numerous complications including periprosthetic joint infection.??Discharge to a group home facility should not be discussed with patients undergoing a primary joint replacement.??Patients undergoing a hip replacement for a hip fracture may end up discharging to a group home facility, particularly if they were in a group home facility prior to their injury ?? Cryotherapy is an essential component of pain control.??The small ice bags provided by the hospital do not get the surgical site cold enough to actually provide any analgesic effect.??Patients can either utilize a cryotherapy device which provides continuous cold fluid to the surgical site or a patient-belongings bag can be filled with ice and placed directly on the surgical site.??Solidifier powder can be placed inside of this patient belongings bag to limit the amount of moisture which accumulates around it, however if this is not available then wet sheets are preferable to administering excessive opioids? Exam Vital Signs (past 8 hours): Oxygen Delivery Method Room Air Oxygen Flow Rate 0 Objective Labs 02/13/23 04:48 [facility] Medical History (Updated 05/25/19 @ 11:34 by Roxana Toth RN) Situational hypertension Alcoholism Gout Osteoarthritis Heart burn Pneumonia Surgical History (Updated 02/04/23 @ 09:07 by Roxana Toth RN) History of fusion of cervical spine (05/29/19) Hx of right knee surgery Hx of neck surgery Hx of eye surgery Social History household members: none Smoking Status: Never smoker alcohol intake: former Assessment & Plan Post-op Postoperative Procedures: Procedures Operation Date: 02/12/23 13:45 Actual Procedure Side Surgeon p Total Knee Arthroplasty Right Hong Hartman MD
[2023-02-14] MEDS: BUPIVACAINE 0.5% MDV 20 ML INJ (08:08)
[2023-02-14 08:19] VITALS: BP 128/76; PULSE 70; RESP 19; TEMP 36.6; O2SAT 99
[2023-02-14 09:02] VITALS: BP 128/96; PULSE 70
[2023-02-14] MEDS: ASPIRIN EC 81 MG TABLET PO (09:02)
[2023-02-14] MEDS: LOSARTAN 50 MG TABLET PO (09:02)
[2023-02-14] MEDS: atenoloL 50 MG TABLET 100 MG PO (09:02)
[2023-02-14] MEDS: DOCUSATE 100 MG CAPSULE PO (09:02)
[2023-02-14] MEDS: methocarbamoL 500 MG TABLET 750 MG PO (09:43)
[2023-02-14] MEDS: GABAPENTIN 300 MG CAPSULE PO ×2 (09:44→14:21)
--- NOTE | 2023-02-14 11:53 | PT-IP ANOTE ---
Pt refuses therapy this AM due to high levels of R knee pain, I feel like someone is hitting me with a baseball bat.
--- NOTE | 2023-02-14 13:05 | PT.IPTN ---
Current Diagnoses Unilateral primary osteoarthritis, right knee (02/12/23) Surgery Performed Operation Date: 02/12/23 13:45 Actual Procedures p Total Knee Arthroplasty(Right) - Hong Hartman MD Physical Therapy Treatment Note M2 PT-IP Current Condition Start: 02/13/23 15:12 Freq: NEEDED Status: Active Protocol: Document 02/13/23 12:50 AB (Rec: 02/13/23 15:29 AB [id number]) Physical Therapy Current Condition Current Condition Evaluation Date 02/13/23 Treatment Diagnosis s/p R TKA; difficulty in walking Onset Date 02/12/23 M3 PT-IP Subjective Start: 02/13/23 15:12 Freq: NEEDED Status: Active Protocol: Document 02/14/23 13:21 ZF (Rec: 02/14/23 13:41 ZF [id number]) Subjective Physical Therapy Visit Type Type Treatment Note Visit Start Time 13:05 Visit Stop Time 13:15 Total Visit Minutes 10 Physical Therapy Visit Comments Patient Comments Confirmed w/nursing that pt is current on prescribed pain meds. Pt sitting in chair when approached for therapy. He reports frustration at high level of pain, which he says is not being managed. States he is unable to sleep and says he would prefer to be miserable at home. Pt educated on importance of mobility for joint healing and pt agreeable to therapy. Therapy Pain Assessment Pain When Pain Assessed At Rest Pain Present Pain Present Pain Reported Location R KNEE Pain Management Techniques Re-positioning,Timing of Activity with Medications M4 PT-IP Mobility and Gait Start: 02/13/23 15:12 Freq: NEEDED Status: Active Protocol: Document 02/14/23 13:21 ZF (Rec: 02/14/23 13:41 ZF [id number]) PT-Transfer Assessment Sit to and From Stand Sit to and from Stand Standby Assistance Equipment Transfer Assistive Device Gait Belt,Front Wheeled Walker Orthotic/Prosthetic Devices or Brace: No Transfers Transfer Destination Bed,Chair Transfer Technique Stand Step Pivot Transfer Ability Level of Assist Standby Assistance,Use of Upper Extremities Comments Mobility Comments Pt in chair when approached for therapy. STS from chair w/ 2ww, SBA. Pt amb ~90' w/2ww, SBA. Pt dems antalgic step-to gait, shortened step length, increased R knee flexion in standing. Pt reports that standing feels better than sitting and declines sitting after treatment. Pt left in room standing w/2ww near bedside table. Call light within reach. All needs met. Gait Assessment Gait Gait Assistance Required: Standby Assistance Distance (Feet) 90 Assistive Devices Assistive Device Gait Belt,Front Wheeled Walker Orthotic/Prosthetic Devices or Brace: No Gait Deviations General Gait Pattern Antalgic,Decreased Stride Length,Decreased Feet Clearance,Step-to Gait Factors Limiting Gait Function Factors Limiting Gait Function Decreased Activity Tolerance, Decreased Strength,Limited Range of Motion,Pain PT-Balance Assessment Sitting Balance and Reactions Static Sitting Balance Ability Normal Dynamic Sitting Balance Ability Normal Standing Balance and Reactions Static Standing Balance Ability Good Dynamic Standing Balance Ability Fair Device Used Fww M5 PT-IP Objective Assessments Start: 02/13/23 15:12 Freq: NEEDED Status: Active Protocol: Document 02/13/23 12:50 AB (Rec: 02/13/23 15:29 AB [id number]) Orientation Orientation/Cognition Level of Alertness Alert Orientation Name,Place,Situation Language Function Ability No Deficits Noted Safety Awareness Decreased Safety Awareness Memory Description No Deficits Noted Gross Range of Motion Lower Extremity ROM Assessment Right Impaired Impairments R knee flexion: ~ 70 deg R knee extension: ~ 20 deg less to 0 Strength Lower Extremity Strength Assessment Right Impaired Hip 3+/5 Knee 3-/5 Muscle Tone Muscle Tone WNL Yes M6 PT-IP Treatment Start: 02/13/23 15:12 Freq: NEEDED Status: Active Protocol: Document 02/13/23 12:50 AB (Rec: 02/13/23 15:29 AB [email or web address]) Physical Therapy Treatment Education Education Provided Safety M7 PT-IP Assessment and Plan Start: 02/13/23 15:12 Freq: NEEDED Status: Active Protocol: Document 02/14/23 13:21 ZF (Rec: 02/14/23 13:41 ZF [id number]) PT Summary Assessment and Plan Potential Rehabilitation Potential Fair Summary Impairments Pain,ROM,Strength,Balance, Coordination,Sensation,Tone, Cognition,Bed Mobility, Transfers,Gait,Activity Tolerance Assessment Summary Pt reports increased pain which is not improving x2 days s/p TKA. Pt reports frustration w/high level of pain, stating that nothing he is getting is helping. Pt's participation in therapy is limited due to high level of pain. Nursing notified. Goals Bed Mobility Goal Independent Transfer Goal Independent,Front Wheeled Walker Gait Goal Independent,Front Wheel Walker Gait Distance 250 Other Goals up/down 1 step using FWW mod I Days to Meet Goals 5 Frequency of Treatment Frequency Of Treatment Twice a Day Treatment Plan Physical Therapy Treatment Plan Bed Mobility Training,Transfer Training,Gait Training, Therapeutic Exercise,Balance Retraining,Post Op Education, Discharge Planning,Hot or Cold Pack,Neuromuscular Re-ed, Coordination Retraining,Manual Therapy Weight Bearing Status Weight Bearing Status Weight Bear as Tolerated Allowed Weight Bearing Amount (enter % RLE WBAT or #) (%) Recommendations To Nursing Amount of Assist Needed Independent Discharge Recommendations PT Discharge Recommendations Home with Assistance, Outpatient PT Transportation Needs at Discharge Private Vehicle
== END 2023-02-14 14:55 | disposition home or self-care (01) ==
LOC: OR 12:03 → AC 12:03 → OR 15:27 → AC 15:29
PROVIDERS: Family Provider Orthopaedic Surgery Orthopaedic Surgery of the Spine; PCP Family Medicine; Referring Provider Orthopaedic Surgery Adult Reconstructive Orthopaedic Surgery; Visit Provider Orthopaedic Surgery Adult Reconstructive Orthopaedic Surgery
PROC: 0SRC0JZ Replacement of Right Knee Joint with Synthetic Substitute, Open Approach (ICD-10-PCS; CPT 27447; principal; 2023-02-12 13:45)
DX: M17.11 Unilateral primary osteoarthritis, right knee (principal); G89.18 Other acute postprocedural pain
CPT/HCPCS: 27447; 36415; 64450; 73560; 85014; 85018; 90471; 90656; 97162; 97530; C1776; J0690; J1100; J1170; J2250; J2405; J2704; J3010; Q2038